=== PATIENT | female | born 2000 | race Hispanic/Latino ===

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

== ENCOUNTER 2023-11-14 19:58 | Emergency (ER) | payer BC | END 2023-11-14 22:24 | disposition home or self-care (01) | LOC: ERS 19:58 | DX: S80.11XA Contusion of right lower leg, initial encounter (principal); V89.9XXA Person injured in unspecified vehicle accident, initial encounter | CPT/HCPCS: 99282 ==